=== PATIENT | male | born 1970 | race Caucasian/White ===

== ENCOUNTER 2018-05-03 07:11 | Day surgery (SDC) | payer BC ==
[2018-05-01 10:18] VITALS: BMI 28.8
[~2018-05-03 07:11] MED LIST: LACTATED RINGERS 1,000 ML IV SCH
[2018-05-03 07:48] VITALS: RESP 16; TEMP 98.3
[2018-05-03] MEDS ORDERED: LIDOCAINE 1% INJ 10MG/ML (20 ML MDV) ONE (08:00)
[2018-05-03] MEDS ORDERED: PROPOFOL 10 MG/ML 20 ML VIAL IV ONE (08:00)
--- NOTE | 2018-05-03 08:04 | P.GSHP ---
History of Present Illness H&P Date: 05/03/18 Chief Complaint: Rectal bleeding Patient here today for colonoscopy. Patient describes a history of frequent hemorrhoidal bleeding. He states he has both internal and external hemorrhoids. Mild perianal pain at times. No family history of colon cancer. No previous colonoscopy. Past Medical History Past Medical History: No Reported History Additional Past Medical History / Comment(s): internal hemorrhoids History of Any Multi-Drug Resistant Organisms: None Reported Past Surgical History: Appendectomy Past Anesthesia/Blood Transfusion Reactions: No Reported Reaction Smoking Status: Current every day smoker - Past Family History Mother Family Medical History: No Reported History Medications and Allergies Home Medications Medication Instructions Recorded Confirmed Type No Known Home Medications 02/10/15 05/03/18 History Allergies Allergy/AdvReac Type Severity Reaction Status Date / Time Penicillins Allergy Rash/Hives Verified 05/03/18 07:38 Surgical - Exam Vital Signs Temp Pulse Resp BP Pulse Ox 98.3 F 60 16 122/78 97 05/03/18 07:46 05/03/18 07:46 05/03/18 07:46 05/03/18 07:46 05/03/18 07:46 Physical exam: General: Well-developed, well-nourished HEENT: Normocephalic, sclerae nonicteric Abdomen: Nontender, nondistended Extremities: No edema Neuro: Alert and oriented Assessment and Plan (1) Rectal bleeding Narrative/Plan: Will proceed with colonoscopy Current Visit: Yes Status: Acute Code(s): K62.5 - HEMORRHAGE OF ANUS AND RECTUM SNOMED Code(s): 95078178
--- NOTE | 2018-05-03 08:19 | P.PCN ---
Date of Procedure: 05/03/18 Procedure(s) Performed: PREOPERATIVE DIAGNOSIS: Rectal bleeding POSTOPERATIVE DIAGNOSIS: Polyps and rectum 3, large internal and external hemorrhoids PROCEDURE: Colonoscopy with snare polypectomy ANESTHESIA: MAC SURGEON: Shayan Quan M.D. SPECIMENS: Polyps ENDOSCOPIC PROCEDURE: The patient was placed on the endoscopy table in the left decubitus position. The Olympus colonoscope was inserted into the anus and passed under direct visualization to the base of the cecum. The appendiceal orifice was visualized. From that point the scope was slowly withdrawn inspecting all surfaces carefully. There were no neoplastic inflammatory or polypoid lesions throughout the cecum, ascending, transverse, descending and sigmoid colon. In the rectum there were noted be 2 proximal polyps that were small both removed using the snare with cautery technique. A slightly larger 5 mm polyp in the distal rectum was also identified and removed using the snare with cautery technique. At the anus patient was found to have internal and external hemorrhoids. The largest hemorrhoid was present in the left posterior position and had some degree of friability. There was no visible diverticulosis. The patient was taken to the recovery room in stable condition per anesthesia guidelines. RECOMMENDATIONS: Await biopsy results. Recommend hemorrhoidectomy given the large left posterior hemorrhoid complex with some friability
[2018-05-03 08:49] VITALS: BP 124/82; PULSE 58
== END 2018-05-03 09:26 | disposition home or self-care (01) ==
LOC: ORWHC2ENDO 07:11
PROVIDERS: ATTEND Surgery
DX: D12.8 Benign neoplasm of rectum (principal); K62.5 Hemorrhage of anus and rectum; K64.4 Residual hemorrhoidal skin tags; K64.8 Other hemorrhoids; F17.200 Nicotine dependence, unspecified, uncomplicated; Z88.0 Allergy status to penicillin
CPT/HCPCS: 88305; 45385; J2001; J2704

== ENCOUNTER 2019-02-03 13:21 | Emergency (ER) | payer BC ==
[2019-02-03] MEDS ORDERED: IPRATROPIUM-ALBUTEROL 3 ML NEB INHALATION STA (15:08)
--- NOTE | 2019-02-03 15:50 | XR ---
EXAMINATION TYPE: XR chest 2V DATE OF EXAM: 02/03/2019 COMPARISON: 08/20/2015 TECHNIQUE: PA and lateral views submitted. HISTORY: Pain FINDINGS: The lungs are clear and there is no pneumothorax, pleural effusion, or focal pneumonia. Hyperinflat ion suggests COPD. No overt failure. IMPRESSION: 1. No acute process.
--- NOTE | 2019-02-03 16:04 | ED ---
General Adult HPI - General Chief complaint: Shortness of Breath Stated complaint: SOB Time Seen by Provider: 02/03/19 14:08 Source: family Mode of arrival: ambulatory Limitations: no limitations - History of Present Illness Initial comments: Patient is a 48-year-old male presenting to the emergency Department with complaints of coughing and upper respiratory type symptoms 1 month. Patient states he has history of chronic bronchitis. Patient has been coughing up phlegm that is clear in nature. Patient is having some shortness of breath with exertion. Patient denies using inhalers at home. Patient denies fever, chills, headache, nausea, vomiting, abdominal pain. Upon arrival, vital signs are stable. - Related Data Previous Rx's Medication Instructions Recorded methylPREDNISolone [Medrol Dose 4 mg PO DIRECTED #1 pack 02/03/19 Pack] Allergies Allergy/AdvReac Type Severity Reaction Status Date / Time Penicillins Allergy Rash/Hives Verified 02/03/19 14:14 Review of Systems ROS Statement: Those systems with pertinent positive or pertinent negative responses have been documented in the HPI. ROS Other: All systems not noted in ROS Statement are negative. Past Medical History Past Medical History: No Reported History Additional Past Medical History / Comment(s): internal hemorrhoids History of Any Multi-Drug Resistant Organisms: None Reported Past Surgical History: Appendectomy Past Anesthesia/Blood Transfusion Reactions: No Reported Reaction Past Psychological History: No Psychological Hx Reported Smoking Status: Current every day smoker Past Alcohol Use History: Daily Past Drug Use History: Marijuana - Past Family History Mother Family Medical History: No Reported History General Exam - General Exam Comments Initial Comments: GENERAL: Well-appearing, well-nourished and in no acute distress. HEAD: Atraumatic, normocephalic. EYES: Pupils equal round and reactive to light, extraocular movements intact, sclera anicteric, conjunctiva are normal. ENT: TMs normal, nares patent, oropharynx clear without exudates. Moist mucous membranes. NECK: Normal range of motion, supple without lymphadenopathy or JVD. LUNGS: Breath sounds clear to auscultation bilaterally and equal. Mild scatter ed wheezes. No rales or rhonchi. HEART: Regular rate and rhythm without murmurs, rubs or gallops. ABDOMEN: Soft, nontender, normoactive bowel sounds. No guarding, no rebound. No masses appreciated. : Deferred EXTREMITIES: Normal range of motion, no pitting or edema. No clubbing or cyanosis. NEUROLOGICAL: Cranial nerves II through XII grossly intact. Normal speech, normal gait. PSYCH: Normal mood, normal affect. SKIN: Warm, Dry, normal turgor, no rashes or lesions noted. Limitations: no limitations Course Vital Signs 02/03/19 02/03/19 02/03/19 13:41 15:24 15:32 Temperature 99 F Pulse Rate 107 H 77 78 Respiratory 18 16 16 Rate Blood Pressure 143/91 O2 Sat by Pulse 97 Oximetry 02/03/19 16:21 Temperature 98.8 F Pulse Rate 85 Respiratory 17 Rate Blood Pressure 134/95 O2 Sat by Pulse 97 Oximetry Medical Decision Making - Medical Decision Making Patient is a 48-year-old male with complaints of cough 1 month. Patient has some shortness of breath with exertion. Patient has history of bronchitis. On exam patient has mild scattered wheezes throughout. Vital signs stable, afebrile. Patient was given a breathing treatment with improvement in symptoms. This x-ray reveals no acute process. Patient is stable for discharge and will be given a course of steroids. Patient is agreement with this plan. Return parameters were discussed with the patient he verbalizes understanding. Case discussed with Dr. José. Disposition Clinical Impression: Bronchitis, Cough Disposition: HOME SELF-CARE Condition: Stable Instructions (If sedation given, give patient instructions): Chronic Bronchitis (ED) Additional Instructions: Please return to the Emergency Department if symptoms worsen or any other concerns. Follow-up with PCP as needed in 3-5 days as symptoms continue. Prescriptions: methylPREDNISolone [Medrol Dose Pack] 4 mg PO DIRECTED #1 pack Is patient prescribed a controlled substance at d/c from ED?: No Referrals: Tod Cowan MD [Primary Care Provider] - 1-2 days
[2019-02-03 16:22] VITALS: BP 134/95; PULSE 85; RESP 17; TEMP 98.8
== END 2019-02-03 16:22 | disposition home or self-care (01) ==
LOC: EC 13:21
DX: J40 Bronchitis, not specified as acute or chronic (principal); F17.200 Nicotine dependence, unspecified, uncomplicated; Z88.0 Allergy status to penicillin
CPT/HCPCS: 71046; 94640; 99285

== ENCOUNTER → 2019-03-26 | Outpatient (CLI) | payer BC ==
--- NOTE | 2019-03-26 17:17 | ECHOS ---
STRESS ECHOCARDIOGRAM DATE OF STUDY: 03/26/2019 INDICATIONS: Chest pain. MEDICATIONS: Inhaler. BASELINE HEART RATE: 60 BASELINE BLOOD PRESSURE: 105/52 MAXIMUM HEART RATE: 158 MAXIMUM BLOOD PRESSURE: 182/64 85% MPHR: 145 100% MPHR: 171 METS: 10.7 MAXIMUM STAGE REACHED: 4 TOTAL EXERCISE TIME: 9:15 CLINICAL INFORMATION: Patient was exercised for a total period of 9 minutes and 15 seconds. The peak heart rate of 148 was achieved. Maximum blood pressure of 176/66 mmHg was noted. Resting EKG shows normal sinus rhythm with normal ME interval and QRS duration and normal ST-T waves. No ST-segment depression suggestive of ischemia is noted. The patient did not complain of any chest pain during the test. Baseline echocardiographic images reveal normal left ventricular chamber size with normal left ventricular systolic function. In the immediate post-exercise period, normal increase in the wall thickness and contractility is noted. FINAL IMPRESSION: This stress echocardiographic study is negative for stress-induced ischemia. EKG portion of the stress test is not suggestive of ischemia. MMODL / IJN: [id number] /
== END ==
LOC: RADNMMAIN 08:32
PROVIDERS: ATTEND Family Medicine
DX: R07.89 Other chest pain (principal)
CPT/HCPCS: 93351

== ENCOUNTER → 2020-01-13 | Outpatient (CLI) | payer BC | END | disposition home or self-care (01) | LOC: LABWHC1 10:29 | PROVIDERS: ATTEND Family Medicine | DX: Z20.828 Contact with and (suspected) exposure to other viral communicable diseases (principal) | CPT/HCPCS: U0003; C9803 ==

== ENCOUNTER 2022-11-02 10:45 | Emergency (ER) | payer BC ==
[2022-11-02 11:40] VITALS: TEMP 98
--- NOTE | 2022-11-02 11:42 | ED ---
General Adult HPI - General Chief complaint: GI Bleed Stated complaint: poss GI bleed Time Seen by Provider: 11/02/22 10:53 Source: patient Mode of arrival: ambulatory Limitations: no limitations - History of Present Illness Initial comments: 52-year-old male with no significant past medical history presents to the emergency department with a chief complaint of abscess. Patient reports having abscess to his right gluteal muscle. He has had this before. He reports that his abscesses will come and go. He reports increased bleeding and drainage at the site earlier today. He denies any self incision. Denies any fevers, chills, dysuria, hematuria, melena, hematochezia. - Related Data Previous Rx's Medication Instructions Recorded Albuterol Inhaler [Ventolin Hfa 1 - 2 puff INHALATION RT-Q6H PRN 02/03/19 Inhaler] #1 inhaler methylPREDNISolone [Medrol Dose 4 mg PO DIRECTED #1 pack 02/03/19 Pack] Cephalexin [Keflex] 500 mg PO Q6HR #40 cap 11/02/22 Sulfamethox-Tmp 800-160Mg [Bactrim 1 each PO Q12HR #20 tab 11/02/22 Ds] Allergies Allergy/AdvReac Type Severity Reaction Status Date / Time Penicillins Allergy Rash/Hives Verified 11/02/22 10:50 Review of Systems ROS Statement: Those systems with pertinent positive or pertinent negative responses have been documented in the HPI. ROS Other: All systems not noted in ROS Statement are negative. Past Medical History Past Medical History: No Reported History Additional Past Medical History / Comment(s): internal hemorrhoids History of Any Multi-Drug Resistant Organisms: None Reported Past Surgical History: Appendectomy Past Anesthesia/Blood Transfusion Reactions: No Reported Reaction Past Psychological History: No Psychological Hx Reported Smoking Status: Current every day smoker Past Alcohol Use History: Daily Past Drug Use History: Marijuana - Past Family History Mother Family Medical History: No Reported History General Exam - General Exam Comments Initial Comments: General: Alert, in no acute distress, shortness afebrile Head: atraumatic normocephalic. Eyes PERRL, EOMI intact, mucous membranes moist Respiratory: Lungs clear to auscultation bilaterally Cardiovascular: Heart rate regular rate and rhythm Abdominal: Soft without guarding or rebound Extremities: Normal inspection with full range of motion and normal capillary refill Neuroogic: alert and oriented 3, CN II-XII intact, able to ambulate with steady gait Skin: warm dry and intact with normal color Limitations: no limitations Course Vital Signs 11/02/22 11/02/22 11/02/22 10:45 11:36 13:01 Temperature 98 F 98.0 F Pulse Rate 78 65 68 Respiratory 18 18 16 Rate Blood Pressure 155/78 138/88 136/78 O2 Sat by Pulse 98 97 98 Oximetry Medical Decision Making - Medical Decision Making Was pt. sent in by a medical professional or institution (, [facility], HOME ADMINISTRATOR, urgent care, hospital, or detention...) When possible be specific @ -[No] Did you speak to anyone other than the patient for history (EMS, parent, family, police, friend...)? What history was obtained from this source @ -[No] Did you review nursing and triage notes (agree or disagree)? Why? @ -[I reviewed and agree with nursing and triage notes] Were old charts reviewed (outside hosp., previous admission, EMS record, old EKG, old radiological studies, urgent care reports/EKG's, detention records)? Report findings @ -[No old charts were reviewed] Differential Diagnosis (chest pain, altered mental status, abdominal pain women, abdominal pain men, vaginal bleeding, weakness, fever, dyspnea, syncope, headache, dizziness, GI bleed, back pain, seizure, CVA, palpatations, mental health, musculoskeletal)? @ -[not applicable] EKG interpreted by me (3pts min.). @ -[As above] X-rays interpreted by me (1pt min.). @ -[None done] CT interpreted by me (1pt min.). @ -[None done] U/S interpreted by me (1pt. min.). @ -[None done] What testing was considered but not performed or refused? (CT, X-rays, U/S, labs)? Why? @ -[None] What meds were considered but not given or refused? Why? @ -[None] Did you discuss the management of the patient with other professionals (professionals i.e. JAYCE Alvarez, HOME ADMINISTRATOR, lab, RT, psych nurse, social service liaison, photo lab specialist, teacher, radiation safety officer, vocational case manager)? Give summary @ -[No] Was smoking cessation discussed for >3mins.? @ -[No] Was critical care preformed (if so, how long)? @ -[No] Were there social determinants of health that impacted care today? How? (Homelessness, low income, unemployed, alcoholism, drug addiction, transportation, low edu. Level, literacy, decrease access to med. care, shelter, rehab)? @ -[No] Was there de-escalation of care discussed even if they declined (Discuss DNR or withdrawal of care, Hospice)? DNR status @ -[No] What co-morbidities impacted this encounter? (DM, HTN, Smoking, COPD, CAD, Cancer, CVA, ARF, Chemo, Hep., AIDS, mental health diagnosis, sleep apnea, morbid obesity)? @ -[None] Was patient admitted / discharged? Hospital course, mention meds given and route, prescriptions, significant lab abnormalities, going to OR and other pertinent info. @ - -Discharged. This is a 52-year-old male who presents to the emergency department with abscess. Patient had a thorough history and physical exam performed while in the ED. Physical exam reveals heart rate regular rate and rhythm, lungs clear to auscultation bilaterally abdomen is soft and nontender.. Right gluteal muscle without any evidence of abscess or erythema. I discussed the results in detail with the patient verbalized understanding and all questions were addressed. He was encouraged to follow up with his PCP in 1-2 days. Return precautions were discussed at length. He was started on Keflex and Bactrim as prophylaxis. Patient discharged in stable condition. Case discussed with Dr. Van BALLESTEROS who agrees with plan of care Undiagnosed new problem with uncertain prognosis? @ -[No] Drug Therapy requiring intensive monitoring for toxicity (Heparin, Nitro, Insulin, Cardizem)? @ -[No] Were any procedures done? @ -[No] Diagnosis/symptom? @ -abscess Acute, or Chronic, or Acute on Chronic? @ -acute Uncomplicated (without systemic symptoms) or Complicated (systemic symptoms)? @ -uncomplicated Side effects of treatment? @ -[No] Exacerbation, Progression, or Severe Exacerbation? @ -[No] Poses a threat to life or bodily function? How? (Chest pain, [place], [place], pneumonia, PE, COPD, DKA, ARF, appy, cholecystitis, CVA, Diverticulitis, Homicidal, Suicidal, threat to staff... and all critical care pts) @ -low likelihood Disposition Clinical Impression: Abscess Disposition: HOME SELF-CARE Condition: Stable Instructions (If sedation given, give patient instructions): Abscess (ED) Additional Instructions: Please follow up with PCP if symptoms continue Please return to the nearest emergency department if symptoms worsen or persist Prescriptions: Sulfamethox-Tmp 800-160Mg [Bactrim Ds] 1 each PO Q12HR #20 tab Cephalexin [Keflex] 500 mg PO Q6HR #40 cap Is patient prescribed a controlled substance at d/c from ED?: No Referrals: Tod Cowan MD [Primary Care Provider] - 1-2 days Time of Disposition: 11:40
[2022-11-02 13:02] VITALS: BP 136/78; PULSE 68; RESP 16
== END 2022-11-02 13:02 | disposition home or self-care (01) ==
LOC: EC 10:45
DX: L02.31 Cutaneous abscess of buttock (principal); F17.200 Nicotine dependence, unspecified, uncomplicated; F12.90 Cannabis use, unspecified, uncomplicated; Z88.0 Allergy status to penicillin
CPT/HCPCS: 99284

== ENCOUNTER 2023-12-16 10:16 | Observation (INO) | payer BC ==
[2023-12-16 11:12] LABS: WBC 13.7 k/uL (3.8-10.6)
[2023-12-16 11:13] LABS: Basophils # (A) 0.1 k/uL (0-0.2); Basophils % (A) 0 %; Eosinophils # (A) 0.2 k/uL (0-0.7); Eosinophils % (A) 1 %; HGB 15.8 gm/dL (13.0-17.5); Lymphocytes # (A) 1.9 k/uL (1.0-4.8); Lymphocytes % (A) 14 %; MCH 31.6 pg (25.0-35.0); MCV 95.8 fL (80.0-100.0); Mean Platelet Volume 8.4; Monocytes % (A) 7 %; Neutrophils # (A) 10.3 k/uL (1.3-7.7); Neutrophils % (A) 75 %; Platelet Count 236 k/uL (150-450); RBC 5.01 m/uL (4.30-5.90); RDW 13.1 % (11.5-15.5)
[2023-12-16 11:18] LABS: ALT 20 U/L (4-49); AST 19 U/L (17-59); African American GFR (CKD) >90 (>60 ml/min/1.73 sqM); Albumin 4.3 g/dL (3.5-5.0); Alkaline Phosphatase 64 U/L (38-126); Anion Gap 9 mmol/L; Blood Urea Nitrogen 10 mg/dL (9-20); Calcium 9.5 mg/dL (8.4-10.2); Carbon Dioxide 20 mmol/L (22-30); Chloride 105 mmol/L (98-107); Glucose 93 mg/dL (74-99); Lipase 58 U/L (23-300); Non-African American GFR(CKD) >90 (>60 ml/min/1.73 sqM); Potassium 4.2 mmol/L (3.5-5.1); Sodium 134 mmol/L (137-145); Total Bilirubin 2.1 mg/dL (0.2-1.3); Total Protein 6.7 g/dL (6.3-8.2)
--- NOTE | 2023-12-16 11:36 | CT ---
EXAMINATION TYPE: CT abdomen pelvis w con DATE OF EXAM: 12/16/2023 COMPARISON: None INDICATION: Abdominal pain, rectal pain DLP: 797.8 mGycm, Automated exposure control for dose reduction was used. CONTRAST: 100 mL of Isovue 300. Study performed without Oral Contrast TECHNIQUE: Axial images were obtained from above the diaphragm to the pubic rami in the axial plane a t 5 mm thick sections. Reconstructed images are reviewed on the computer in the coronal plane. FINDINGS: Limited CT sections are obtained the lung bases. The lung bases are clear. Small hiatal hernia is p resent. CT ABDOMEN: Liver: Normal Spleen: Normal Pancreas: Normal Adrenal glands: The adrenal glands are normal. Gallbladder: Normal Kidneys: Horseshoe kidney is present. No hydronephrosis is present. Small cortical renal cysts on t he posterior lateral left portion of the kidney. Series 201 image 32 measuring 1.1 cm. Delayed image s were obtained through the kidneys, which remain unremarkable. Aorta: Vascular calcification is within the aorta. Inferior vena cava: Normal. CT PELVIS: Loops of bowel within the abdomen and pelvis are normal. There are loops of bowel which are incom pletely distended or lack oral contrast limiting their evaluation. Some perirectal thickening may be present. No discrete abscess is identified. Perirectal fat appears normal. No suspicious lymphadenopathy. Appendix: Not identified. No dilated tubular structure or inflammatory change is evident. Urinary bladder: Normal. Genitourinary structures: Prostate appears normal Osseous structures: No suspicious lytic or sclerotic lesions. Spondylolysis of L5 is present IMPRESSION: 1. There may be phlegmon formation at the superficial perineum at the level venous. No underlying ab scess is identified. 2. Small hiatal hernia. 3. Horseshoe kidney. 4. Spondylolysis of L5.
[2023-12-16 12:51] LABS: Appearance,Urine Clear (Clear); Bilirubin,Urine Negative (Negative); Blood,Urine Negative (Negative); Color,Urine Light Yellow; Glucose,Urine (UA) Negative (Negative); Ketones,Urine Negative (Negative); Leukocyte Esterase,Urine Negative (Negative); Nitrite,Urine Negative (Negative); PH, Urine 6.5 (5.0-8.0); Protein,Urine Negative (Negative); Urobilinogen,Urine <2.0 mg/dL (<2.0)
--- NOTE | 2023-12-16 12:51 | ED ---
Abdominal Pain HPI - General Chief Complaint: Abdominal Pain Stated Complaint: abd pain Time Seen by Provider: 12/16/23 10:24 Source: patient, RN notes reviewed Mode of arrival: ambulatory Limitations: no limitations - History of Present Illness Initial Comments: 53-year-old male presents emergency department chief complaint of abdominal pain, rectal pain. Patient states to have increasing swelling and discomfort especially bowel movements. Patient states that he has had similes in the past but seem to clear up but has returned again. Patient reports possible fever he states the pain is so severe at times difficult to have bowel movement. - Related Data Previous Rx's Medication Instructions Recorded Albuterol Inhaler [Ventolin Hfa 1 - 2 puff INHALATION RT-Q6H PRN 02/03/19 Inhaler] #1 inhaler methylPREDNISolone [Medrol Dose 4 mg PO DIRECTED #1 pack 02/03/19 Pack] Cephalexin [Keflex] 500 mg PO Q6HR #40 cap 11/02/22 Sulfamethox-Tmp 800-160Mg [Bactrim 1 each PO Q12HR #20 tab 11/02/22 Ds] Allergies Allergy/AdvReac Type Severity Reaction Status Date / Time Penicillins Allergy Rash/Hives Verified 12/16/23 10:23 Review of Systems ROS Statement: Those systems with pertinent positive or pertinent negative responses have been documented in the HPI. ROS Other: All systems not noted in ROS Statement are negative. Past Medical History Past Medical History: No Reported History Additional Past Medical History / Comment(s): internal hemorrhoids History of Any Multi-Drug Resistant Organisms: None Reported Past Surgical History: Appendectomy Past Anesthesia/Blood Transfusion Reactions: No Reported Reaction Past Psychological History: No Psychological Hx Reported Smoking Status: Current every day smoker Past Alcohol Use History: Daily Past Drug Use History: Marijuana - Past Family History Mother Family Medical History: No Reported History General Exam Limitations: no limitations General appearance: alert, in no apparent distress Head exam: Present: atraumatic, normocephalic, normal inspection Respiratory exam: Present: normal lung sounds bilaterally. Absent: respiratory distress, wheezes, rales, rhonchi, stridor Cardiovascular Exam: Present: regular rate, normal rhythm, normal heart sounds. Absent: systolic murmur, diastolic murmur, rubs, gallop, clicks GI/Abdominal exam: Present: soft, tenderness, normal bowel sounds. Absent: distended, guarding, rebound, rigid Rectal exam: Present: tenderness Course Vital Signs 12/16/23 12/16/23 10:21 12:10 Temperature 98.3 F Pulse Rate 92 73 Respiratory 18 16 Rate Blood Pressure 147/88 135/83 O2 Sat by Pulse 96 96 Oximetry Medical Decision Making - Medical Decision Making Was pt. sent in by a medical professional or institution (, PA, CLEARING DISTRIBUTION CLERK, urgent care, hospital, or fdc...) When possible be specific @ -No Did you speak to anyone other than the patient for history (EMS, parent, family, police, friend...)? What history was obtained from this source @ -No Did you review nursing and triage notes (agree or disagree)? Why? @ -I reviewed and agree with nursing and triage notes Were old charts reviewed (outside hosp., previous admission, EMS record, old EKG, old radiological studies, urgent care reports/EKG's, fdc records)? Report findings @ -No old charts were reviewed Differential Diagnosis (chest pain, altered mental status, abdominal pain women, abdominal pain men, vaginal bleeding, weakness, fever, dyspnea, syncope, headache, dizziness, GI bleed, back pain, seizure, CVA, palpatations, mental health, musculoskeletal)? @ -Differential Abdominal Pain Men: Appendicitis, cholecystitis, diverticulosis, ischemic bowel, pancreatitis, hepatitis, UTI, gastroenteritis, AAA, incarcerated hernia, bowel obstruction, constipation, inflammatory bowel, hepatitis, peptic ulcer disease, splenic infarction, perforated viscus, testicular torsion, this is not meant to be an all-inclusive list EKG interpreted by me (3pts min.). @ -None X-rays interpreted by me (1pt min.). @ -None done CT interpreted by me (1pt min.). @ -CT abdomen pelvis showing evidence of phlegmon formation, inflammatory changes rectal U/S interpreted by me (1pt. min.). @ -None done What testing was considered but not performed or refused? (CT, X-rays, U/S, labs)? Why? @ -None What meds were considered but not given or refused? Why? @ -None Did you discuss the management of the patient with other professionals (professionals i.e. , JAYCE, CLEARING DISTRIBUTION CLERK, lab, RT, psych nurse, home health care social worker, merchandise executive, teacher, employee service officer, patient case coordinator)? Give summary @ -Dr. Campbell for admission Was smoking cessation discussed for >3mins.? @ -No Was critical care preformed (if so, how long)? @ -No Were there social determinants of health that impacted care today? How? (Homelessness, low income, unemployed, alcoholism, drug addiction, transportation, low edu. Level, literacy, decrease access to med. care, penitentiary, rehab)? @ -No Was there de-escalation of care discussed even if they declined (Discuss DNR or withdrawal of care, Hospice)? DNR status @ -No What co-morbidities impacted this encounter? (DM, HTN, Smoking, COPD, CAD, Cancer, CVA, ARF, Chemo, Hep., AIDS, mental health diagnosis, sleep apnea, morbid obesity)? @ -None Was patient admitted / discharged? Hospital course, mention meds given and route, prescriptions, significant lab abnormalities, going to OR and other pertinent info. @ -Admit the patient started on antibiotics, will consult ID and surgery for rectal abscess Undiagnosed new problem with uncertain prognosis? @ -No Drug Therapy requiring intensive monitoring for toxicity (Heparin, Nitro, In sulin, Cardizem)? @ -No Were any procedures done? @ -No Diagnosis/symptom? @ -Rectal abscess Acute, or Chronic, or Acute on Chronic? @ -Acute Uncomplicated (without systemic symptoms) or Complicated (systemic symptoms)? @ -Complicated Side effects of treatment? @ -No Exacerbation, Progression, or Severe Exacerbation? @ -No Poses a threat to life or bodily function? How? (Chest pain, [place], [place], pneumonia, PE, COPD, DKA, ARF, appy, cholecystitis, CVA, Diverticulitis, Homicidal, Suicidal, threat to staff... and all critical care pts) @ -Yes sepsis, endorgan failure, surgical risk - Lab Data Result diagrams: 12/16/23 10:51 12/16/23 10:51 Lab Results 12/16/23 12/16/23 12/16/23 Range/Units 10:51 10:51 10:51 WBC 13.7 H (3.8-10.6) k/uL RBC 5.01 (4.30-5.90) m/uL Hgb 15.8 (13.0-17.5) gm/dL Hct 48.0 (39.0-53.0) % MCV 95.8 (80.0-100.0) fL MCH 31.6 (25.0-35.0) pg MCHC 33.0 (31.0-37.0) g/dL RDW 13.1 (11.5-15.5) % Plt Count 236 (150-450) k/uL MPV 8.4 Neutrophils % 75 % Lymphocytes % 14 % Monocytes % 7 % Eosinophils % 1 % Basophils % 0 % Neutrophils # 10.3 H (1.3-7.7) k/uL Lymphocytes # 1.9 (1.0-4.8) k/uL Monocytes # 1.0 (0-1.0) k/uL Eosinophils # 0.2 (0-0.7) k/uL Basophils # 0.1 (0-0.2) k/uL Sodium 134 L (137-145) mmol/L Potassium 4.2 (3.5-5.1) mmol/L Chloride 105 (98-107) mmol/L Carbon Dioxide 20 L (22-30) mmol/L Anion Gap 9 mmol/L BUN 10 (9-20) mg/dL Creatinine 0.70 (0.66-1.25) mg/dL Est GFR (CKD-EPI)AfAm >90 (>60 ml/min/1.73 sqM) Est GFR (CKD-EPI)NonAf >90 (>60 ml/min/1.73 sqM) Glucose 93 (74-99) mg/dL Plasma Lactic Acid John 0.9 (0.7-2.0) mmol/L Calcium 9.5 (8.4-10.2) mg/dL Total Bilirubin 2.1 H (0.2-1.3) mg/dL AST 19 (17-59) U/L ALT 20 (4-49) U/L Alkaline Phosphatase 64 (38-126) U/L Total Protein 6.7 (6.3-8.2) g/dL Albumin 4.3 (3.5-5.0) g/dL Lipase 58 (23-300) U/L Disposition Clinical Impression: Rectal abscess Disposition: ADMITTED IP TO THIS HOSP Condition: Fair Referrals: Tod Cowan MD [Primary Care Provider] - 1-2 days Time of Disposition: 12:51
[2023-12-16] MEDS ORDERED: KETOROLAC 15 MG/ML 1 ML VIAL IVP PRN (12:52)
[2023-12-16] MEDS ORDERED: HYDROmorphone 0.5 MG/0.5 ML SYRINGE IVP PRN (12:52)
[2023-12-16] MEDS ORDERED: ACETAMINOPHEN TAB 325 MG TAB PO PRN (12:52)
[2023-12-16] MEDS ORDERED: ONDANSETRON 4 MG/2 ML VIAL IVP PRN (12:52)
[2023-12-16] MEDS ORDERED: NALOXONE 0.4 MG/ML 1 ML VIAL IV PRN (12:52)
[2023-12-16 13:13] LABS: Specific Gravity,Urine >1.050 (1.001-1.035)
--- NOTE | 2023-12-16 13:32 | P.HPIM ---
History of Present Illness H&P Date: 12/16/23 History of present illness;patient is a 53-year-old gentleman with no significan t past medical history who presented to the ER because of abdominal pain.patient stated that for the last couple of days he has been having abdominal pain, also complaining of painful defecation. Stated that bowel movements are very painful. Denied any blood in the stools. Denies any Nausea or Vomiting. There Is No Complaint of Fever or Chills. Patient Denies Any Chest Pain Shortness of Breath. Because of His Abdominal Pain, Patient Presented to the ER Initial lab work done in the ER showed WBC 30.7, hemoglobin 14.8, platelet count 236, sodium 134, potassium 4.2, BUN 10, creatinine 0.70, bilirubin 2.1, UA negative for infection computed tomography scan abdominal pelvis done showedphlegmon formation in the superficial perineum Patient admitted to internal medicine service REVIEW OF SYSTEMS: CONSTITUTIONAL: No fever, no malaise, no fatigue. HEENT: No recent visual problems or hearing problems. Denied any sore throat. CARDIOVASCULAR: No chest pain, orthopnea, PND, no palpitations, no syncope. PULMONARY: No shortness of breath, no cough, no hemoptysis. GASTROINTESTINAL: as mentioned above NEUROLOGICAL: No headaches, no weakness, no numbness. HEMATOLOGICAL: Denies any bleeding or petechiae. GENITOURINARY: Denies any burning micturition, frequency, or urgency. MUSCULOSKELETAL/RHEUMATOLOGICAL: Denies any joint pain, swelling, or any muscle pain. ENDOCRINE: Denies any polyuria or polydipsia. The rest of the 14-point review of systems is negative. PHYSICAL EXAMINATION: GENERAL: The patient is alert and oriented x3, not in any acute distress. Well developed, well nourished. HEENT: Pupils are round and equally reacting to light. EOMI. No scleral icterus. No conjunctival pallor. Normocephalic, atraumatic. No pharyngeal erythema. No thyromegaly. CARDIOVASCULAR: S1 and S2 present. No murmurs, rubs, or gallops. PULMONARY: Chest is clear to auscultation, no wheezing or crackles. ABDOMEN: Soft, nontender, nondistended, normoactive bowel sounds. No palpable organomegaly. MUSCULOSKELETAL: No joint swelling or deformity. EXTREMITIES: No cyanosis, clubbing, or pedal edema. NEUROLOGICAL: Gross neurological examination did not reveal any focal deficits. SKIN: No rashes. Assessment and plan intra-abdominal abscess Abdominal pain Monitor vital signs Monitor CBC Monitor CMP ordered blood cultures Continue pain management Continue IV fluids Start Levaquin and Flagyl Consult general surgery Consult ID Labs and medication were reviewed.. Continue same treatment. Continue with symptomatic treatment. Resume home medication. Monitor labs and vitals. DVT and GI prophylaxis. Further recommendations as per clinical course of the patient Dictation was produced using [employer] dictation software. please excuse any grammatical, word or spelling errors. Past Medical History Past Medical History: No Reported History Additional Past Medical History / Comment(s): internal hemorrhoids History of Any Multi-Drug Resistant Organisms: None Reported Past Surgical History: Appendectomy Past Anesthesia/Blood Transfusion Reactions: No Reported Reaction Past Psychological History: No Psychological Hx Reported Smoking Status: Current every day smoker Past Alcohol Use History: Daily Past Drug Use History: Marijuana - Past Family History Mother Family Medical History: No Reported History Medications and Allergies Home Medications Medication Instructions Recorded Confirmed Type No Known Home Medications 12/16/23 12/16/23 History Allergies Allergy/AdvReac Type Severity Reaction Status Date / Time Penicillins Allergy Rash/Hives Verified 12/16/23 13:04 Physical Exam Vitals: Vital Signs Temp Pulse Resp BP Pulse Ox 12/16/23 12:10 73 16 135/83 96 12/16/23 10:21 98.3 F 92 18 147/88 96 Intake and Output 12/15/23 12/16/23 12/16/23 22:59 06:59 14:59 Other: Weight 81.647 kg Results CBC & Chem 7: 12/16/23 10:51 12/16/23 10:51 Labs: Abnormal Lab Results - Last 24 Hours (Table) 12/16/23 12/16/23 12/16/23 Range/Units 10:51 10:51 10:55 WBC 13.7 H (3.8-10.6) k/uL Neutrophils # 10.3 H (1.3-7.7) k/uL Sodium 134 L (137-145) mmol/L Carbon Dioxide 20 L (22-30) mmol/L Total Bilirubin 2.1 H (0.2-1.3) mg/dL Ur Specific [place] >1.050 H (1.001-1.035)
[2023-12-16] MEDS: LEVOFLOXACIN 750MG-D5W PMX 750 MG in DEXTROSE/WATER 1 150ML.BAG IVPB SCH (13:51)
[2023-12-16] MEDS: SODIUM CHLORIDE 0.9% 1,000 ML IV SCH (13:54)
[2023-12-16] MEDS: metroNIDAZOLE-NS PMX 500 MG in SALINE 1 100ML.BAG IVPB SCH (16:01)
--- NOTE | 2023-12-17 09:11 | P.PN ---
Subjective Progress Note Date: 12/17/23 This is a 53-year-old male who presented to the emergency department with complaints of abdominal pain and painful defecation. Patient reports painful bowel movements over the last week. He reports he does have a history of rectal abscesses. CT of the abdomen and pelvis showed possible phlegmon formation at the superficial perineum and general surgery has been consulted. Patient seen and evaluated sitting up in bed this morning. He reports he is still having pain with bowel movements. He is also reporting some drainage from the rectal area. Objective - Vital Signs Vital signs: Vital Signs Temp 98.4 F 12/17/23 08:12 Pulse 68 12/17/23 08:12 Resp 17 12/17/23 08:12 BP 151/81 12/17/23 08:12 Pulse Ox 95 12/17/23 08:12 FiO2 Intake & Output 12/16/23 12/17/23 12/17/23 18:59 06:59 18:59 Weight 81.647 kg - Constitutional General appearance: Present: cooperative, no acute distress - EENT Eyes: Present: PERRLA - Neck Neck: Present: normal ROM. Absent: lymphadenopathy, rigidity - Respiratory Respiratory: bilateral: CTA - Cardiovascular Rhythm: regular Heart sounds: normal: S1, S2 - Gastrointestinal Gastrointestinal Comment(s): Hemorrhoid present General gastrointestinal: Present: soft. Absent: tenderness - Integumentary Integumentary: Present: normal, normal turgor - Psychiatric Psychiatric: Present: A&O x's 3, appropriate affect, intact judgment & insight - Labs CBC & Chem 7: 12/16/23 10:51 12/16/23 10:51 Labs: Abnormal Lab Results - Last 24 Hours (Table) 12/16/23 12/16/23 12/16/23 Range/Units 10:51 10:51 10:55 WBC 13.7 H (3.8-10.6) k/uL Neutrophils # 10.3 H (1.3-7.7) k/uL Sodium 134 L (137-145) mmol/L Carbon Dioxide 20 L (22-30) mmol/L Total Bilirubin 2.1 H (0.2-1.3) mg/dL Ur Specific [place] >1.050 H (1.001-1.035) Assessment and Plan (1) Abdominal pain Current Visit: Yes Status: Acute Code(s): R10.9 - UNSPECIFIED ABDOMINAL PAIN SNOMED Code(s): 62058364 (2) Hemorrhoid Current Visit: Yes Status: Acute Code(s): K64.9 - UNSPECIFIED HEMORRHOIDS SNOMED Code(s): 36486495 (3) Rectal abscess Current Visit: Yes Status: Acute Code(s): K61.1 - RECTAL ABSCESS SNOMED Code(s): 692272179 Plan: Await recommendations from general surgery. Patient seen and evaluated by nurse practitioner, physician in agreement with plan
--- NOTE | 2023-12-17 11:19 | P.GSCN ---
History of Present Illness Consult date: 12/17/23 History of present illness: CHIEF COMPLAINT: Rectal pain HISTORY OF PRESENT ILLNESS: This is a 53-year-old male who presents to the hospital with complaints of rectal pain that started evening. Patient has had prior history of buttock abscesses. One time that resolved on its own and a second abscess that required antibiotics. Patient had a CT scan abdomen and pelvis that had reported phlegmon formation at the superficial perineum. No underlying abscess identified. Patient reports that the pain is at the top of the anus. He has noted some purulent drainage. He reports pain and discomfort in the area with bowel movement and flatus. He did have episode of incontinence of stools. Denies any history of MRSA. PAST MEDICAL HISTORY: See below PAST SURGICAL HISTORY: See below MEDICATIONS: See below ALLERGIES: See below SOCIAL HISTORY: Daily EtOH use. Nicotine dependence. Marijuana use. REVIEW OF SYSTEMS: CONSTITUTIONAL: Denies fever or chills. HEENT: Denies blurred vision, vision changes, or eye pain. Denies hemoptysis CARDIOVASCULAR: Denies chest pain or pressure. RESPIRATORY: No shortness of breath. GASTROINTESTINAL: See HPI for pertinent findings HEMATOLOGIC: Denies bleeding disorders. GENITOURINARY: Denies any blood in urine or increased urinary frequency. SKIN: Denies pruitis. Denies rash. PHYSICAL EXAM: VITAL SIGNS: Reviewed GENERAL: Well-developed in no acute distress. HEENT: No sclera icterus. Extraocular movements grossly intact. Moist buccal mucosa. Head is atraumatic, normocephalic. No nasal drainage. ABDOMEN: Soft. Nondistended. Nontender Buttocks: External hemorrhoids noted. Proximal to the anus the skin is inflamed. There is area of small purulent drainage. Small pimple also noted. Tender with palpation. Perineum area nontender NEUROLOGIC: Alert and oriented. Cranial nerves II through XII grossly intact. LABORATORY DATA: WBC 13.7 Hgb 15.8 platelets 236 NA 134 potassium 4.2 creatinine 0.70 IMAGING: CT scan abdomen pelvis there may be phlegmon formation at the superficial perineum at the level of venous. No underlying abscess. Small hiatal hernia. Horseshoe kidney. Spondylosis of L5. ASSESSMENT: 1. Phlegmon formation at the superficial perineum noted on CT 2. Pain proximal to the anus PLAN: -Continue antibiotics -Apply warm compresses -Continue pain management -Further recommendations forthcoming per surgeon Physician Billiard Table Assembler note has been reviewed by physician. Signing provider agrees with the documented findings, assessment, and plan of care. I have personally seen and examined the patient, reviewed the DIRECTOR OF DANCE /PAs history, exam and MDM and agree with the assessment and plan as written. Based on total visit time, I have performed more than 50% of the visit. As above: Patient with history of previous perirectal abscess. Feels better today. Had some spontaneous drainage she states. On exam unable to visualize any wound formation or purulent drainage at this time. Suspect drainage was transanal spontaneously. Mild induration still posterior midline to the right. Continue antibiotics. N.p.o. after midnight in case symptoms worsen and we need to go to surgery. Will follow. Past Medical History Past Medical History: No Reported History Additional Past Medical History / Comment(s): internal hemorrhoids History of Any Multi-Drug Resistant Organisms: None Reported Past Surgical History: Appendectomy Past Anesthesia/Blood Transfusion Reactions: No Reported Reaction Past Psychological History: No Psychological Hx Reported Smoking Status: Current every day smoker Past Alcohol Use History: Daily Past Drug Use History: Marijuana - Past Family History Mother Family Medical History: No Reported History Medications and Allergies Home Medications Medication Instructions Recorded Confirmed Type No Known Home Medications 12/16/23 12/16/23 History Allergies Allergy/AdvReac Type Severity Reaction Status Date / Time Penicillins Allergy Rash/Hives Verified 12/16/23 13:04 Surgical - Exam Vital Signs Temp Pulse Resp BP Pulse Ox 98.3 F 92 18 147/88 96 12/16/23 10:21 12/16/23 10:21 12/16/23 10:21 12/16/23 10:21 12/16/23 10:21 Results - Labs 12/16/23 10:51 12/16/23 10:51 Abnormal Lab Results - Last 24 Hours (Table) 12/16/23 12/16/23 12/16/23 Range/Units 10:51 10:51 10:55 WBC 13.7 H (3.8-10.6) k/uL Neutrophils # 10.3 H (1.3-7.7) k/uL Sodium 134 L (137-145) mmol/L Carbon Dioxide 20 L (22-30) mmol/L Total Bilirubin 2.1 H (0.2-1.3) mg/dL Ur Specific [place] >1.050 H (1.001-1.035) Diabetes panel 12/16/23 Range/Units 10:51 Sodium 134 L (137-145) mmol/L Potassium 4.2 (3.5-5.1) mmol/L Chloride 105 (98-107) mmol/L Carbon Dioxide 20 L (22-30) mmol/L BUN 10 (9-20) mg/dL Creatinine 0.70 (0.66-1.25) mg/dL Glucose 93 (74-99) mg/dL Calcium 9.5 (8.4-10.2) mg/dL AST 19 (17-59) U/L ALT 20 (4-49) U/L Alkaline Phosphatase 64 (38-126) U/L Total Protein 6.7 (6.3-8.2) g/dL Albumin 4.3 (3.5-5.0) g/dL Calcium panel 12/16/23 Range/Units 10:51 Calcium 9.5 (8.4-10.2) mg/dL Albumin 4.3 (3.5-5.0) g/dL Pituitary panel 12/16/23 Range/Units 10:51 Sodium 134 L (137-145) mmol/L Potassium 4.2 (3.5-5.1) mmol/L Chloride 105 (98-107) mmol/L Carbon Dioxide 20 L (22-30) mmol/L BUN 10 (9-20) mg/dL Creatinine 0.70 (0.66-1.25) mg/dL Glucose 93 (74-99) mg/dL Calcium 9.5 (8.4-10.2) mg/dL Adrenal panel 12/16/23 Range/Units 10:51 Sodium 134 L (137-145) mmol/L Potassium 4.2 (3.5-5.1) mmol/L Chloride 105 (98-107) mmol/L Carbon Dioxide 20 L (22-30) mmol/L BUN 10 (9-20) mg/dL Creatinine 0.70 (0.66-1.25) mg/dL Glucose 93 (74-99) mg/dL Calcium 9.5 (8.4-10.2) mg/dL Total Bilirubin 2.1 H (0.2-1.3) mg/dL AST 19 (17-59) U/L ALT 20 (4-49) U/L Alkaline Phosphatase 64 (38-126) U/L Total Protein 6.7 (6.3-8.2) g/dL Albumin 4.3 (3.5-5.0) g/dL
[2023-12-17] MEDS: CEFEPIME 2 GM in SODIUM CHLORIDE 0.9% 100 ML IVPB SCH (12:19)
[2023-12-17] MEDS ORDERED: LORazepam 1 MG TAB PO PRN ×3 (13:14)
[2023-12-17] MEDS ORDERED: LORazepam 0.5 MG TAB PO PRN (13:14)
--- NOTE | 2023-12-18 08:24 | P.CONS ---
History of Present Illness - Reason for Consult Consult date: 12/17/23 Rectal abscess Requesting physician: Shadi Vázquez - Chief Complaint Perirectal pain x few days - History of Present Illness Patient is a 53-year-old male with previous history of perirectal/gluteal infection/inflammation that has been treated in the outpatient setting presenting to the hospital with rectal pain that started 3 days before presentation to the hospital, patient denies any history of any trauma has been complaining of mostly sharp pain that has gradually increased in intensity without any radiation patient mention there was some gush of fluid out mostly blood with some relief of the pain with the symptoms the patient present to the hospital on arrival to the ER patient was afebrile and no fever has been recorded subsequently patient was not tachycardic hypotensive or hypoxic patient did have white count 13.7 with a left shift creatinine 0.70 electrolytes are normal urine is negative patient did have a abdominal pelvis CT there may be phlegmon formation at the site for facial perineum at the level venous no abscess patient was started on Levaquin and Flagyl because of his penicillin allergy infectious disease was consulted for further management of antibiotic therapy Review of Systems Positive point and negatives has been mentioned in the HPI, complete review of systems was performed and all other systems are negative Past Medical History Past Medical History: No Reported History Additional Past Medical History / Comment(s): internal hemorrhoids History of Any Multi-Drug Resistant Organisms: None Reported Past Surgical History: Appendectomy Past Anesthesia/Blood Transfusion Reactions: No Reported Reaction Past Psychological History: No Psychological Hx Reported Smoking Status: Current every day smoker Past Alcohol Use History: Daily Past Drug Use History: Marijuana - Past Family History Mother Family Medical History: No Reported History Medications and Allergies Home Medications Medication Instructions Recorded Confirmed Type cefUROXime axetiL [Ceftin] 500 mg PO BID 10 Days #20 tab 12/19/23 Rx metroNIDAZOLE [Flagyl] 500 mg PO TID #30 tab 12/19/23 Rx Allergies Allergy/AdvReac Type Severity Reaction Status Date / Time Penicillins Allergy Rash/Hives Verified 12/16/23 13:04 Physical Exam Vitals: Vital Signs Temp Pulse Pulse Resp BP BP Pulse Ox 12/17/23 08:12 98.4 F 68 17 151/81 95 12/17/23 05:37 67 16 124/87 94 L 12/16/23 23:47 71 16 143/87 97 12/16/23 18:52 94 18 150/80 97 12/16/23 12:10 73 16 135/83 96 GENERAL DESCRIPTION: Middle-aged male lying in bed, no distress. No tachypnea or accessory muscle of respiration use. HEENT: Shows Pallor , no scleral icterus. Oral mucous membrane is dry. No pharyngeal erythema or thrush NECK: Trachea central, no thyromegaly. LUNGS: Unlabored breathing. Clear to auscultation anteriorly. No wheeze or crackle. HEART: S1, S2, regular rate and rhythm. No loud murmur ABDOMEN: Soft, patient did have hemorrhoidal tags there was some tenderness to the right perirectal area but no open wound or any drainage EXTREMITIES: No edema of feet. SKIN: No rash, no masses palpable. NEUROLOGICAL: The patient is awake, alert, oriented x3, mood and affect normal. Results CBC & Chem 7: 12/19/23 06:49 12/19/23 06:49 Labs: Abnormal Lab Results - Last 24 Hours (Table) 12/16/23 Range/Units 10:55 Ur Specific [place] >1.050 H (1.001-1.035) Assessment and Plan (1) Perirectal abscess Status: Acute Code(s): K61.1 - RECTAL ABSCESS SNOMED Code(s): 33763153 (2) Penicillin allergy Status: Acute Code(s): Z88.0 - ALLERGY STATUS TO PENICILLIN SNOMED Code(s): 39023406 (3) Leukocytosis Status: Acute Code(s): D72.829 - ELEVATED WHITE BLOOD CELL COUNT, UNSPECIFIED SNOMED Code(s): 119641583 Plan: 1patient presented hospital with a perirectal pain discomfort and apparently did have some drainage has been diagnosed with the pain and rectal phlegmon fo rmation but did not mention any abscess and there was no evidence of any drainage clinically at the time of evaluation likely from enteric gram-negative pathogen. 2patient with a penicillin allergy that would limit the number of antibiotics safe to use but no history of anaphylaxis. 3discontinue Levaquin. 4we will start the patient cefepime 2 g every 8 hour and continue with the Flagyl. 5if the patient is going to the OR for drainage culture should be obtained that will guide further antibiotic therapy discussed with the surgical team on the floor. We will follow on clinical condition and cultures to further adjust medication if needed Thank you for this consultation we will follow the patient along with you Dictation was produced using [employer] dictation software. please excuse any gram matical, word or spelling errors. Time with Patient: Greater than 30
--- NOTE | 2023-12-18 09:24 | P.PN ---
Subjective Progress Note Date: 12/18/23 This is a 53-year-old male who presented to the emergency department with complaints of abdominal pain and painful defecation. Patient reports painful bowel movements over the last week. He reports he does have a history of rectal abscesses. CT of the abdomen and pelvis showed possible phlegmon formation at the superficial perineum and general surgery has been consulted. Patient seen and evaluated sitting up in bed this morning. He reports he is still having pain with bowel movements. He is also reporting some drainage from the rectal area. 12/18/2023 Patient seen and evaluated sitting up in bed this morning. He reports he was feeling better yesterday afternoon, however this morning did have some more drainage noted when he went to the bathroom. He is n.p.o. currently for possible surgery this afternoon. Remains on IV antibiotics. Vitals are stable. Objective - Vital Signs Vital signs: Vital Signs Temp 98.3 F 12/18/23 07:16 Pulse 55 L 12/18/23 07:16 Resp 18 12/18/23 07:16 BP 147/78 12/18/23 07:16 Pulse Ox 96 12/18/23 07:16 FiO2 Intake & Output 12/17/23 12/18/23 12/18/23 18:59 06:59 18:59 Intake Total 2370 0 Balance 2370 0 Weight 81.647 kg Intake: Intake, IV Titration 750 Amount Cefepime 2 gm In Sodium 100 Chloride 0.9% 100 ml @ 25 mls/hr IVPB Q8H [facility] Rx#: [id number] Sodium Chloride 0.9% 1, 450 000 ml @ 75 mls/hr IV . [id number] [facility] Rx#:[id number] metroNIDAZOLE-NS PMX 500 200 mg In Saline 1 100ml.bag @ 100 mls/hr IVPB Q8HR [facility] Rx#:[id number] Oral 1620 0 Other: Voiding Method Toilet # Voids 1 - Constitutional General appearance: Present: cooperative, no acute distress - EENT Eyes: Present: PERRLA - Neck Neck: Present: normal ROM. Absent: lymphadenopathy, rigidity - Respiratory Respiratory: bilateral: CTA - Cardiovascular Rhythm: regular Heart sounds: normal: S1, S2 - Gastrointestinal Gastrointestinal Comment(s): Hemorrhoid present General gastrointestinal: Present: soft. Absent: tenderness - Integumentary Integumentary: Present: normal, normal turgor - Psychiatric Psychiatric: Present: A&O x's 3, appropriate affect, intact judgment & insight - Labs CBC & Chem 7: 12/16/23 10:51 12/16/23 10:51 Labs: Microbiology - Last 24 Hours (Table) 12/16/23 13:30 Blood Culture - Preliminary Blood 12/16/23 13:40 Blood Culture - Preliminary Blood Assessment and Plan (1) Abdominal pain Current Visit: Yes Status: Acute Code(s): R10.9 - UNSPECIFIED ABDOMINAL PAIN SNOMED Code(s): 82370812 (2) Hemorrhoid Current Visit: Yes Status: Acute Code(s): K64.9 - UNSPECIFIED HEMORRHOIDS SNOMED Code(s): 67888418 (3) Rectal abscess Current Visit: Yes Status: Acute Code(s): K61.1 - RECTAL ABSCESS SNOMED Code(s): 804660840 Plan: Await recommendations from general surgery. Continue IV antibiotics CBC and CMP in the morning Patient seen and evaluated by nurse practitioner, physician in agreement with plan
[2023-12-18 10:25] LABS: HCT 42.8 % (39.6-50.0); HGB 14.6 g/dL (13.0-17.0); MCH 32.1 pg (27.0-32.0); MCHC 34.1 g/dL (32.0-37.0); MCV 94.1 FL (80.0-97.0); Mean Platelet Volume 10.4 FL (9.5-12.2); NRBC Per 100 WBC 0 X 10*3/uL (0.00-0.01); Platelet Count 241 X 10*3/uL (140-440); RBC 4.55 X 10*6/uL (4.40-5.60); RDW 13.2 % (11.5-14.5); WBC 7.07 X 10*3/uL (4.50-10.00)
[2023-12-18 10:36] LABS: ALT 20 U/L (10-49); AST 12 U/L (14-35); Albumin 3.7 g/dL (3.8-4.9); Albumin/Globulin Ratio 1.95 Ratio (1.60-3.17); Alkaline Phosphatase 49 U/L (41-126); BUN/Creat Ratio 11.88 Ratio (12.00-20.00); Blood Urea Nitrogen 9.5 mg/dL (9.0-27.0); Calcium 8.9 mg/dL (8.7-10.3); Carbon Dioxide 21.7 mmol/L (21.6-31.8); Chloride 107 mmol/L (96-109); Globulin 1.9 g/dL (1.6-3.3); Glucose 100 mg/dL (70-110); Potassium 4.9 mmol/L (3.5-5.5); Sodium 140 mmol/L (135-145); Total Bilirubin 0.7 mg/dL (0.3-1.2); Total Protein 5.6 g/dL (6.2-8.2)
--- NOTE | 2023-12-18 12:05 | P.PN ---
Subjective Progress Note Date: 12/18/23 CHIEF COMPLAINT: Rectal pain HISTORY OF PRESENT ILLNESS: Patient reports his pain is less. He is able to move easier. He does report that the pain has moved more towards the right buttocks. He has had a small amount of clear pinkish drainage. Afebrile. WBC has normalized from 13-7.07 PHYSICAL EXAM: VITAL SIGNS: Reviewed. GENERAL: Well-developed in no acute distress. ABDOMEN: Soft. Nondistended. Nontender. Rectal: Proximal to the anus the skin is inflamed and indurated. There is area of small clearish drainage. tender with palpation. There is a tiny area of fluctuance. ASSESSMENT: 1. Perirectal abscess having spontaneous drainage. 2. Prior history of perirectal abscess PLAN: -Continue antibiotics -Recommend showering and applying warm compresses to the rectal area -Further recommendations forthcoming per surgeon Physician Finance Consultant note has been reviewed by physician. Signing provider agrees with the documented findings, assessment, and plan of care. I have personally seen and examined the patient, reviewed the ADVERTISING PRODUCTION MANAGER /PAs history, exam and MDM and agree with the assessment and plan as written. Based on total visit time, I have performed more than 50% of the visit. As above: Patient with some spontaneous drainage again from the right posterior location. Mild tenderness there. Overall improved. Continue antibiotics. Objective - Vital Signs Vital signs: Vital Signs Temp 98.3 F 12/18/23 07:16 Pulse 55 L 12/18/23 07:16 Resp 18 12/18/23 07:16 BP 147/78 12/18/23 07:16 Pulse Ox 96 12/18/23 07:16 FiO2 Intake & Output 12/17/23 12/18/23 12/18/23 18:59 06:59 18:59 Intake Total 2370 0 Balance 2370 0 Weight 81.647 kg Intake: Intake, IV Titration 750 Amount Cefepime 2 gm In Sodium 100 Chloride 0.9% 100 ml @ 25 mls/hr IVPB Q8H [facility] Rx#: [id number] Sodium Chloride 0.9% 1, 450 000 ml @ 75 mls/hr IV . [id number] [facility] Rx#:[id number] metroNIDAZOLE-NS PMX 500 200 mg In Saline 1 100ml.bag @ 100 mls/hr IVPB Q8HR [facility] Rx#:[id number] Oral 1620 0 Other: Voiding Method Toilet Toilet # Voids 1 - Labs CBC & Chem 7: 12/18/23 06:27 12/18/23 06:27 Labs: Abnormal Lab Results - Last 24 Hours (Table) 12/18/23 12/18/23 Range/Units 06:27 06:27 MCH 32.1 H (27.0-32.0) pg BUN/Creatinine Ratio 11.88 L (12.00-20.00) Ratio AST 12 L (14-35) U/L Total Protein 5.6 L (6.2-8.2) g/dL Albumin 3.7 L (3.8-4.9) g/dL Microbiology - Last 24 Hours (Table) 12/16/23 13:30 Blood Culture - Preliminary Blood 12/16/23 13:40 Blood Culture - Preliminary Blood
--- NOTE | 2023-12-18 17:22 | P.PN ---
Subjective Progress Note Date: 12/18/23 Principal diagnosis: Reason for follow-up is perirectal abscess Patient is a 53-year-old male with previous history of perirectal/gluteal infection/inflammation that has been treated in the outpatient setting presenting to the hospital with rectal pain that started 3 d ays before presentation to the hospital, patient did have CT suggestive of phlegmon formation but no abscess. On today's evaluation that is 12/18/2023, patient has been afebrile, patient is breathing comfortably and is currently on room air, patient denies having any significant cough no chest pain shortness of breath, patient denies nausea vomiting or diarrhea and no abdominal pain patient mention there are some drainage from the perirectal area and overall pain has decreased in intensity. Patient white count normalized to 7.07, creatinine 0.8 blood culture negative Objective - Vital Signs Vital signs: Vital Signs Temp 98.4 F 12/18/23 12:09 Pulse 50 L 12/18/23 12:09 Resp 18 12/18/23 12:09 BP 124/77 12/18/23 12:09 Pulse Ox 96 12/18/23 12:09 FiO2 Intake & Output 12/17/23 12/18/23 12/18/23 18:59 06:59 18:59 Intake Total 2370 0 Balance 2370 0 Weight 81.647 kg Intake: Intake, IV Titration 750 Amount Cefepime 2 gm In Sodium 100 Chloride 0.9% 100 ml @ 25 mls/hr IVPB Q8H [facility] Rx#: [id number] Sodium Chloride 0.9% 1, 450 000 ml @ 75 mls/hr IV . [id number] [facility] Rx#:[id number] metroNIDAZOLE-NS PMX 500 200 mg In Saline 1 100ml.bag @ 100 mls/hr IVPB Q8HR [facility] Rx#:[id number] Oral 1620 0 Other: Voiding Method Toilet Toilet # Voids 1 - Exam GENERAL DESCRIPTION: Middle-age male lying in bed in no distress RESPIRATORY SYSTEM: Unlabored breathing , decreased breath sounds at bases HEART: S1 S2 regular rate and rhythm , ABDOMEN: Soft , no tenderness, perirectal area with no drainage EXTREMITIES: No edema feet - Labs CBC & Chem 7: 12/18/23 06:27 12/18/23 06:27 Labs: Abnormal Lab Results - Last 24 Hours (Table) 12/18/23 12/18/23 Range/Units 06:27 06:27 MCH 32.1 H (27.0-32.0) pg BUN/Creatinine Ratio 11.88 L (12.00-20.00) Ratio AST 12 L (14-35) U/L Total Protein 5.6 L (6.2-8.2) g/dL Albumin 3.7 L (3.8-4.9) g/dL Microbiology - Last 24 Hours (Table) 12/16/23 13:30 Blood Culture - Preliminary Blood 12/16/23 13:40 Blood Culture - Preliminary Blood Assessment and Plan (1) Perirectal abscess Current Visit: Yes Status: Acute Code(s): K61.1 - RECTAL ABSCESS SNOMED Code(s): 00802006 (2) Penicillin allergy Current Visit: Yes Status: Acute Code(s): Z88.0 - ALLERGY STATUS TO PENICILLIN SNOMED Code(s): 74435118 (3) Leukocytosis Current Visit: Yes Status: Acute Code(s): D72.829 - ELEVATED WHITE BLOOD CELL COUNT, UNSPECIFIED SNOMED Code(s): 667491079 Plan: 1patient presented hospital with a perirectal pain discomfort and apparently did have some drainage has been diagnosed with the pain and rectal phlegmon formation but did not mention any abscess and there was no evidence of any drainage clinically at the time of evaluation likely from enteric gram-negative pathogen. 2patient with a penicillin allergy that would limit the number of antibiotics safe to use but no history of anaphylaxis. 3patient did have normalization of his white count we will continue cefepime 2 g every 8 hour and continue with the Flagyl, and monitor clinical course closely 5if the patient is going to the OR for drainage culture should be obtained that will guide further antibiotic therapy discussed with the surgical team on the floor. My statement Time with Patient: Less than 30
[2023-12-19 10:30] LABS: HGB 14.9 g/dL (13.0-17.0); MCH 32.1 pg (27.0-32.0); MCHC 34.7 g/dL (32.0-37.0); MCV 92.7 FL (80.0-97.0); Mean Platelet Volume 9.9 FL (9.5-12.2); NRBC Per 100 WBC 0 X 10*3/uL (0.00-0.01); Platelet Count 271 X 10*3/uL (140-440); RBC 4.64 X 10*6/uL (4.40-5.60); RDW 13.2 % (11.5-14.5); WBC 6.11 X 10*3/uL (4.50-10.00)
[2023-12-19 10:45] LABS: ALT 20 U/L (10-49); AST 16 U/L (14-35); Albumin 3.9 g/dL (3.8-4.9); Albumin/Globulin Ratio 2.05 Ratio (1.60-3.17); Alkaline Phosphatase 47 U/L (41-126); BUN/Creat Ratio 14.75 Ratio (12.00-20.00); Blood Urea Nitrogen 11.8 mg/dL (9.0-27.0); Calcium 9.1 mg/dL (8.7-10.3); Carbon Dioxide 22.4 mmol/L (21.6-31.8); Chloride 104 mmol/L (96-109); Globulin 1.9 g/dL (1.6-3.3); Glucose 89 mg/dL (70-110); Potassium 4.5 mmol/L (3.5-5.5); Sodium 137 mmol/L (135-145); Total Bilirubin 0.7 mg/dL (0.3-1.2); Total Protein 5.8 g/dL (6.2-8.2)
[2023-12-19 12:46] VITALS: BP 125/77; PULSE 87; RESP 17; TEMP 98
--- NOTE | 2023-12-19 14:07 | P.PN ---
Subjective Progress Note Date: 12/19/23 CHIEF COMPLAINT: Rectal pain HISTORY OF PRESENT ILLNESS: Patient reports he is feeling better. Pain cont inues to improve. He has had no further drainage. Afebrile. WBC 6.11. Patient reports that he feels ready for discharge PHYSICAL EXAM: VITAL SIGNS: Reviewed. GENERAL: Well-developed in no acute distress. ABDOMEN: Soft. Nondistended. Nontender. Rectal: No erythema above the anus. Minimal tenderness. No drainage. ASSESSMENT: 1. Perirectal abscess having spontaneous drainage. 2. Prior history of perirectal abscess PLAN: -No surgical intervention planned -Agree with discharge -Continue antibiotics Physician Contract Assistant note has been reviewed by physician. Signing provider agrees with the documented findings, assessment, and plan of care. Objective - Vital Signs Vital signs: Vital Signs Temp 98.0 F 12/19/23 12:09 Pulse 87 12/19/23 12:09 Resp 17 12/19/23 12:09 BP 125/77 12/19/23 12:09 Pulse Ox 96 12/19/23 12:09 FiO2 Intake & Output 12/18/23 12/19/23 12/19/23 18:59 06:59 18:59 Intake Total 700 Balance 700 Intake: Intake, IV Titration 700 Amount Cefepime 2 gm In Sodium 200 Chloride 0.9% 100 ml @ 25 mls/hr IVPB Q8H [facility] Rx#: [id number] Sodium Chloride 0.9% 1, 300 000 ml @ 75 mls/hr IV . [id number] [facility] Rx#:[id number] metroNIDAZOLE-NS PMX 500 200 mg In Saline 1 100ml.bag @ 100 mls/hr IVPB Q8HR [facility] Rx#:[id number] Other: Voiding Method Toilet Toilet Toilet # Voids 2 - Labs CBC & Chem 7: 12/19/23 06:49 12/19/23 06:49 Labs: Abnormal Lab Results - Last 24 Hours (Table) 12/19/23 12/19/23 Range/Units 06:49 06:49 MCH 32.1 H (27.0-32.0) pg Total Protein 5.8 L (6.2-8.2) g/dL Microbiology - Last 24 Hours (Table) 12/16/23 13:30 Blood Culture - Preliminary Blood 12/16/23 13:40 Blood Culture - Preliminary Blood
--- NOTE | 2023-12-21 15:16 | P.PN ---
Subjective Progress Note Date: 12/19/23 Principal diagnosis: Reason for follow-up is perirectal abscess Patient is a 53-year-old male with previous history of perirectal/gluteal infection/inflammation that has been treated in the outpatient setting presenting to the hospital with rectal pain that started 3 d ays before presentation to the hospital, patient did have CT suggestive of phlegmon formation but no abscess. On today's evaluation that is 12/19/2023, Patient is afebrile this morning and denies any chills, patient mention breathing comfortably and is currently on room air, patient denies any chest pain occasional cough patient denies any abdominal pain no diarrhea no nausea no vomiting patient pain to the perirectal area has decreased in intensity and no drainage. Patient white count of 6.11, creatinine 0.8 blood culture negative Objective - Vital Signs Vital signs: Vital Signs Temp 97.8 F 12/19/23 07:48 Pulse 58 L 12/19/23 07:48 Resp 16 12/19/23 07:48 BP 148/86 12/19/23 07:48 Pulse Ox 96 12/19/23 07:48 FiO2 Intake & Output 12/18/23 12/19/23 12/19/23 18:59 06:59 18:59 Intake Total 700 Balance 700 Intake: Intake, IV Titration 700 Amount Cefepime 2 gm In Sodium 200 Chloride 0.9% 100 ml @ 25 mls/hr IVPB Q8H [facility] Rx#: [id number] Sodium Chloride 0.9% 1, 300 000 ml @ 75 mls/hr IV . [id number] [facility] Rx#:[id number] metroNIDAZOLE-NS PMX 500 200 mg In Saline 1 100ml.bag @ 100 mls/hr IVPB Q8HR [facility] Rx#:[id number] Other: Voiding Method Toilet Toilet # Voids 2 - Exam GENERAL DESCRIPTION: Middle-age male lying in bed in no distress RESPIRATORY SYSTEM: Unlabored breathing , decreased breath sounds at bases HEART: S1 S2 regular rate and rhythm , ABDOMEN: Soft , no tenderness, perirectal area with no drainage EXTREMITIES: No edema feet - Labs CBC & Chem 7: 12/19/23 06:49 12/19/23 06:49 Labs: Abnormal Lab Results - Last 24 Hours (Table) 06/26/24 06/26/24 Range/Units 06:49 06:49 MCH 32.1 H (27.0-32.0) pg Total Protein 5.8 L (6.2-8.2) g/dL Microbiology - Last 24 Hours (Table) 12/16/23 13:30 Blood Culture - Preliminary Blood 12/16/23 13:40 Blood Culture - Preliminary Blood Assessment and Plan (1) Perirectal abscess Status: Acute Code(s): K61.1 - RECTAL ABSCESS SNOMED Code(s): 72302281 (2) Penicillin allergy Status: Acute Code(s): Z88.0 - ALLERGY STATUS TO PENICILLIN SNOMED Code(s): 58016443 (3) Leukocytosis Status: Acute Code(s): D72.829 - ELEVATED WHITE BLOOD CELL COUNT, UNSPECIFIED SNOMED Code(s): 435247729 Plan: 1patient presented hospital with a perirectal pain discomfort and apparently did have some drainage has been diagnosed with the pain and rectal phlegmon formation but did not mention any abscess and there was no evidence of any drainage clinically at the time of evaluation likely from enteric gram-negative pathogen. 2patient with a penicillin allergy that would limit the number of antibiotics safe to use but no history of anaphylaxis. 3patient did have normalization of his white count blood culture has been negative, surgery recommended no surgical drainage and medicine has recommended discharge we will consider 10-day course of oral Ceftin and Flagyl advise if any recurrence of pain drainage or fever to let me know right away Dictation was produced using [employer] dictation software. please excuse any grammatical, word or spelling errors. Time with Patient: Less than 30
--- NOTE | 2024-01-02 08:24 | P.DS ---
Providers Date of admission: 12/16/23 12:55 Attending physician: Tod Cowan Consults: 12/16/23 12:52 Consult Physician Routine Consulting Provider: Shayan Quan Consult Reason/Comments: Rectal abscess Do you want consulting provider notified?: Yes Consult Physician Urgent Consulting Provider: Escobar Urena Consult Reason/Comments: Rectal abscess Do you want consulting provider notified?: Yes Primary care physician: Tod Cowan Hospital Course: This is a discharge summary 53-year-old white male who was admitted for perirectal gluteal infection. The patient was placed on appropriate antibiotic treatment this is not the first time he had this issue. After discussing his standard lifestyle with the patient, it finds that he is struggling with ethanol abuse/alcoholism. He drinks about 6 beers daily. And I suspect this is a contributing factor to his recurrent rectal abscess. The patient was started on appropriate antibiotic treatment and stabilized he did not need aggressive surgery due to the fact that it was draining and he will be placed on outpatient antibiotic treatment to follow-up with me in about 1 week. Patient Condition at Discharge: Fair Plan - Discharge Summary New Discharge Prescriptions: New cefUROXime axetiL [Ceftin] 500 mg PO BID 10 Days #20 tab metroNIDAZOLE [Flagyl] 500 mg PO TID #30 tab Discharge Medication List cefUROXime axetiL [Ceftin] 500 mg PO BID 10 Days #20 tab 12/19/23 [Rx] metroNIDAZOLE [Flagyl] 500 mg PO TID #30 tab 12/19/23 [Rx] Follow up Appointment(s)/Referral(s): Shayan Quan MD [Medical Doctor] - 01/02/24 1:50 pm Tod Cowan MD [Primary Care Provider] - 12/25/23 2:40 pm (appointment with Connie HENNING) Patient Instructions/Handouts: Cefuroxime (By mouth), Metronidazole (By mouth), Hemorrhoids (DC), Abscess (GEN) Activity/Diet/Wound Care/Special Instructions: Activity as tolerated. Avoid Alcohol While on Flagyl patient can not drink alcohol. Discharge Disposition: HOME SELF-CARE
== END 2023-12-19 13:00 | disposition home or self-care (01) ==
LOC: EC 10:16 → 5NMEDONC 12:55 → UNDOADMOB 12:56 → 6NMEDSUR 12:56 → 5NMEDONC 12-17 03:25 → 6NMEDSUR 12-17 03:25 → 5NMEDONC 12-17 03:38 → INTOOBSV 12-17 10:35 → OBSVTOIN 12-17 10:35 → UNDODISIN 12-19 13:00
PROVIDERS: ADMIT Family Medicine; ATTEND Family Medicine
DX: K61.1 Rectal abscess (principal); K64.4 Residual hemorrhoidal skin tags; F10.20 Alcohol dependence, uncomplicated; F17.200 Nicotine dependence, unspecified, uncomplicated; R10.9 Unspecified abdominal pain; R15.9 Full incontinence of feces; Z88.0 Allergy status to penicillin; Z87.19 Personal history of other diseases of the digestive system
CPT/HCPCS: 96361 ×3; 96366 ×5; 96365; 96367; 99285; 36415; 80053 ×3; 83605; 83690; 85025; 85027 ×2; 81003; 87040; 74177; G0378 ×5; J0692 ×3; J1956; Q9967; J1836 ×4